=== PATIENT | male | born 1950 | race Caucasian/White ===

== ENCOUNTER 2016-07-28 09:30 | Day surgery (SDC) | payer OTHER ==
[~2016-07-28] VITALS: Ht 162.6 cm; Wt 58.1 kg
[~2016-07-28 09:30] MED LIST: FLAX100038 PO; FLUT9.9S NS; IMI100 PO; OXYC-466 PO; Sodium Chloride LOK Flush 10 mL Syringe IV PRN; ZONI100C6 PO; fentaNYL-PF 50 mCg/mL 2 mL Inj IVPUSH PRN
[2016-07-28 09:53] VITALS: BP 137/85; PULSE 51; RESP 16; O2SAT 100
[2016-07-28] MEDS ORDERED: VERA360C2 PO (09:54)
[2016-07-28] MEDS ORDERED: 0.9% Sodium Chloride 1,000 ML IV ONE (10:10)
[2016-07-28 10:46] VITALS: BP 108/68; PULSE 54; RESP 14; O2SAT 99
[2016-07-28 10:58] VITALS: BP 109/72; PULSE 50; RESP 16; O2SAT 100
[2016-07-28 11:06] VITALS: BP 118/72; PULSE 58; RESP 16; O2SAT 100
--- NOTE | 2016-07-28 14:25 | ENDO ---
[address] [address] ENDOSCOPY PROCEDURE PATIENT: MARICRUZ DEGROOT : 1950 MR#: [id number] ADMIT: 07/28/2016 JOB ID: [id number] DATE: 07/28/2016 TYPE OF OPERATION: Colonoscopy. PREOPERATIVE DIAGNOSIS(ES): 1. Rectal bleeding. 2. History of adenoma polyps. POSTOP DIAGNOSIS: External and internal hemorrhoids, small. ANESTHESIA: 1. Fentanyl 100 mcg. 2. Versed 5 mg IV administered. COMPLICATIONS: None. BLOOD LOSS: Minimal. DESCRIPTION OF PROCEDURE: After risks and benefits were explained to the patient, informed consent was obtained. After anesthesia administered, colonoscope was then inserted per rectum to cecum. Mucosa carefully examined. Prep of the patient was fair. After the procedure was done, the scope withdrawn and procedure terminated. FINDINGS: Upon inspection of the anus, there were small external hemorrhoids. No masses or fissures were seen. Throughout the entire examination, no polyps or masses were seen. Retroflexion showed small internal hemorrhoids. IMPRESSIONS: Small external and internal hemorrhoids. RECOMMENDATIONS: 1. Stool softener. 2. Repeat colonoscopy five years given history of adenoma polyps. 3. Followup in GI clinic. SHIKHA
== END 2016-07-28 23:59 | disposition home or self-care (01) ==
LOC: END 09:30
PROVIDERS: ATTEND Internal Medicine Gastroenterology
DX: Z12.11 Encounter for screening for malignant neoplasm of colon (principal); Z86.010 Personal history of colon polyps; I10 Essential (primary) hypertension; N40.1 Benign prostatic hyperplasia with lower urinary tract symptoms; R33.8 Other retention of urine; K64.8 Other hemorrhoids; K64.4 Residual hemorrhoidal skin tags
CPT/HCPCS: G0105; G0500; J7030